=== PATIENT | male | born 1990 | race Caucasian/White ===

== ENCOUNTER 2022-01-04 05:37 | Emergency (ER) | payer OTHER ==
[~2022-01-04] VITALS: Ht 185.4 cm; Wt 129.6 kg
[2022-01-04 05:45] VITALS: BP 114/83
== END 2022-01-04 06:48 | disposition left against medical advice (07) ==
LOC: ER 05:42
DX: R21 Rash and other nonspecific skin eruption (principal); Z53.21 Procedure and treatment not carried out due to patient leaving prior to being seen by health care provider

== ENCOUNTER 2022-01-16 12:39 | Emergency (ER) | payer MEDICAID, OTHER ==
[~2022-01-16] VITALS: Ht 185.4 cm; Wt 118.2 kg
[2022-01-16 13:58] VITALS: BP 107/69
[2022-01-16] MEDS ORDERED: CEPH250T PO (14:03)
[2022-01-16] MEDS ORDERED: PRED10TA23 PO (14:03)
[2022-01-16] MEDS ORDERED: ACYC5CRE2 TP (14:03)
[2022-01-16] MEDS ORDERED: ACYC-129 PO (14:03)
== END 2022-01-16 14:11 | disposition home or self-care (01) ==
LOC: ER 12:39
DX: R23.8 Other skin changes (principal); L03.818 Cellulitis of other sites; Z86.14 Personal history of Methicillin resistant Staphylococcus aureus infection; Z88.0 Allergy status to penicillin; Z79.2 Long term (current) use of antibiotics; Z79.899 Other long term (current) drug therapy
CPT/HCPCS: 99283